=== PATIENT | male | born 2000 | race African-American/Black ===

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

== ENCOUNTER 2019-04-01 13:21 | Emergency (ER) | payer OTHER ==
[2019-04-01 13:43] VITALS: BP 133/70
--- NOTE | 2019-04-01 14:00 | UC ---
Throat Pain/Nasal Ricardo HPI - HPI Summary HPI Summary: sore throat x 4 days pain is severe8 out of 10 , worse with eating + fever, chills, body aches, fatigue , cough, swollen gland , nausea and vomiting - History of Current Complaint Chief Complaint: UCGeneralIllness Stated Complaint: CHILLS,FEVER,COUGH,ACHY,ST,VOMITTING-HX:ASTHMA Time Seen by Provider: 04/01/19 13:36 Hx Obtained From: Patient Onset/Duration: Gradual Onset, Lasting Days - 4, Still Present Severity: Severe Pain Intensity: 8 Cough: Nonproductive Associated Signs & Symptoms: Positive: Fever, Vomiting. Negative: Rash - Allergies/Home Medications Allergies/Adverse Reactions: Allergies Allergy/AdvReac Type Severity Reaction Status Date / Time No Known Allergies Allergy Verified 04/01/19 13:43 Home Medications: Home Medications Dm/Acetaminophen/Doxylamine [Night Cold-Flu Relief Liq Gel] 1 each PO DAILY PRN 04/01/19 [History Confirmed 04/01/19] Ibuprofen TAB* [Motrin TAB* 400 MG] 400 mg PO Q6H PRN 04/01/19 [History Confirmed 04/01/19] PMH/Surg Hx/FS Hx/Imm Hx Previously Healthy: Yes - Surgical History Surgical History: None - Family History Known Family History: Negative: Diabetes - Social History Alcohol Use: Occasionally Substance Use Type: Marijuana Substance Use Comment - Amount & Last Used: daily Smoking Status (MU): Never Smoked Tobacco Review of Systems All Other Systems Reviewed And Are Negative: Yes Constitutional: Positive: Fever, Chills, Fatigue Skin: Positive: Negative Eyes: Positive: Negative ENT: Positive: Sore Throat Respiratory: Positive: Cough Cardiovascular: Positive: Negative Musculoskeletal: Positive: Arthralgia, Myalgia Neurological: Positive: Headache, Weakness Is Patient Immunocompromised?: No Physical Exam Triage Information Reviewed: Yes Appearance: Well-Nourished, Pain Distress Vital Signs: Initial Vital Signs Temp 96.8 F 04/01/19 13:37 Pulse 100 04/01/19 13:37 Resp 18 04/01/19 13:37 BP 133/70 04/01/19 13:37 Pulse Ox 99 04/01/19 13:37 Vital Signs Reviewed: Yes Eye Exam: Normal Eyes: Positive: Conjunctiva Clear ENT: Positive: Pharyngeal erythema, TMs normal, Tonsillar swelling, Tonsillar exudate. Negative: Nasal congestion, Nasal drainage, TM bulging, TM dull, TM red, Trismus Neck: Positive: Supple, Tenderness @, Enlarged Nodes @ Respiratory: Positive: Chest non-tender, Lungs clear, Normal breath sounds Cardiovascular: Positive: Tachycardia Abdomen Description: Positive: Nontender, No Organomegaly, Soft. Negative: CVA Tenderness (R), CVA Tenderness (L), Distended, Guarding Bowel Sounds: Positive: Present Skin Exam: Normal Throat Pain/Nasal Course/Dx - Differential Dx/Diagnosis Provider Diagnosis: Mononucleosis Discharge ED - Sign-Out/Discharge Documenting (check all that apply): Patient Departure All imaging exams completed and their final reports reviewed: No Studies - Discharge Plan Condition: Stable Disposition: HOME Prescriptions: predniSONE TAB* [Deltasone 20 MG TAB*] 40 mg PO DAILY #10 tab Patient Education Materials: Mononucleosis (ED), Pharyngitis (ED) Referrals: No Primary Care Phys,NOPCP [Primary Care Provider] - 5 Days Additional Instructions: negative rapid strep will check for [place] call the office tomorrow for the lab results cont. with rest, increase fluid, take Tylenol as needed for pain / fever prednisone 40 mg daily no contact sports for 4 weeks - Billing Disposition and Condition Condition: STABLE Disposition: Home
== END 2019-04-01 14:40 | disposition home or self-care (01) ==
LOC: UCCORT 13:21
DX: B27.90 Infectious mononucleosis, unspecified without complication (principal)
CPT/HCPCS: 36415; 86308; 87651; 99212; G0463